=== PATIENT | female | born 1985 | race Caucasian/White ===

== ENCOUNTER → 2021-07-10 15:50 | Observation (INO) ==
[2021-07-10 12:15] LABS: Protein/Creatinine Ratio,Urine 0.24 mg/mg (0.00-0.20)
[2021-07-10 12:24] LABS: Basophils % 0.3 %; Eosinophils # 0.1 K/mcL (0.0-0.6); Eosinophils % 1.5 %; Hematocrit 34.6 % (35.3-44.9); Hemoglobin 11.3 g/dL (11.5-15.4); Immature Granulocytes % 2.1 % (0-4); Lymphocytes % 12.9 %; Mean Corpuscular HGB Conc 32.7 g/dL (31.6-35.5); Mean Corpuscular Hemoglobin 29.9 pg (28.0-33.3); Mean Corpuscular Volume 91.5 fL (83.0-100.0); Mean Platelet Volume 10.6 fL (9.4-12.4); Monocytes # 0.6 K/mcL (0.0-1.3); Monocytes % 7.2 %; Neutrophils # 5.9 K/mcL (1.6-8.9); Platelet Count 241 K/mcL (140-400); Red Blood Count 3.78 M/mcL (3.82-4.97); Red Cell Distribution Width 13.7 % (11.5-14.5); White Blood Count 7.8 K/mcL (4.3-11.1)
[2021-07-10 12:25] LABS: Alanine Aminotransferase 23 Units/L (7-52); Aspartate Amino Transferase 32 Units/L (13-39); BUN/Creatinine Ratio 11 (6-26); Blood Urea Nitrogen 8 mg/dL (6-20); Lactate Dehydrogenase 267 Units/L (140-271); Uric Acid 4.9 mg/dL (2.3-7.6); eGFR For African Americans > 60 (> 60); eGFR For Non-African Americans > 60 (> 60)
[~2021-07-10 15:50] MED LIST: Betamethasone Acet/SodPhos 30 MG/5 ML VIAL IM SCH
== END | disposition home or self-care (01) ==
LOC: 1NENULAB
PROVIDERS: ADMIT Obstetrics & Gynecology; ATTEND Obstetrics & Gynecology

== ENCOUNTER → 2021-07-11 15:50 | Observation (INO) ==
[~2021-07-11 15:50] MED LIST changes: +Acetaminophen/Butalbital/CaffeineTABLET PO ONE; -Betamethasone Acet/SodPhos 30 MG/5 ML VIAL IM SCH; +Betamethasone Acet/SodPhos 30 MG/5 ML VIAL IM STA; +Ondansetron ODT 4 MG TAB.RAPDIS SL ONE
== END | disposition home or self-care (01) ==
LOC: 1NENULAB
PROVIDERS: ADMIT Advanced Practice Midwife; ATTEND Advanced Practice Midwife

== ENCOUNTER → 2021-07-14 15:28 | Observation (INO) ==
[2021-07-14 13:11] LABS: Bacteria,Urine Few per hpf (None-Few); Bilirubin,Urine Negative (Negative); Blood,Urine Moderate (Negative); Clarity,Urine Clear (Clear); Color,Urine Light-Yellow (Yellow); Glucose,Urine (UA) Normal (Normal); Ketones,Urine Negative (Negative); Leukocyte Esterase,Urine Negative (Negative); Mucus,Urine Few per lpf (None-Few); Nitrite,Urine Negative (Negative); Protein,Urine Negative (Neg-Trace); Specific Gravity,Urine 1.009 (1.010-1.025); Squamous Epithelial Cell,Urine Few per hpf (None-Few); Urobilinogen,Urine Normal (Normal)
[2021-07-14 13:33] LABS: Basophils % 0.5 %; Eosinophils # 0.1 K/mcL (0.0-0.6); Eosinophils % 1.3 %; Hemoglobin 10.5 g/dL (11.5-15.4); Immature Granulocytes % 4.4 % (0-4); Lymphocytes # 1.2 K/mcL (0.6-4.6); Lymphocytes % 14.1 %; Mean Corpuscular HGB Conc 32.8 g/dL (31.6-35.5); Mean Corpuscular Hemoglobin 30.3 pg (28.0-33.3); Mean Corpuscular Volume 92.2 fL (83.0-100.0); Mean Platelet Volume 9.7 fL (9.4-12.4); Monocytes # 0.8 K/mcL (0.0-1.3); Monocytes % 8.8 %; Platelet Count 215 K/mcL (140-400); Red Blood Count 3.47 M/mcL (3.82-4.97); Red Cell Distribution Width 14.2 % (11.5-14.5); Segmented Neutrophils % 70.9 %; White Blood Count 8.5 K/mcL (4.3-11.1)
[2021-07-14 13:43] LABS: Protein/Creatinine Ratio,Urine 0.22 mg/mg (0.00-0.20)
[2021-07-14 13:52] LABS: Alanine Aminotransferase 28 Units/L (7-52); Aspartate Amino Transferase 17 Units/L (13-39); BUN/Creatinine Ratio 14 (6-26); Blood Urea Nitrogen 9 mg/dL (6-20); Lactate Dehydrogenase 117 Units/L (140-271); Uric Acid 5.7 mg/dL (2.3-7.6); eGFR For African Americans > 60 (> 60); eGFR For Non-African Americans > 60 (> 60)
[~2021-07-14 15:28] MED LIST changes: -Acetaminophen/Butalbital/CaffeineTABLET PO ONE; -Betamethasone Acet/SodPhos 30 MG/5 ML VIAL IM STA; +Ondansetron 4 MG/2 ML VIAL IVP PRN; -Ondansetron ODT 4 MG TAB.RAPDIS SL ONE; +Ondansetron ODT 4 MG TAB.RAPDIS SL STA; +Ringers Solution, Lactated 1,000 ML IVC ONE; +Ringers Solution, Lactated 1,000 ML IVC SCH
== END | disposition home or self-care (01) ==
LOC: 1NENULAB
PROVIDERS: ADMIT Advanced Practice Midwife; ATTEND Advanced Practice Midwife

== ENCOUNTER → 2021-07-16 16:06 | Observation (INO) ==
[2021-07-16 15:55] LABS: Amorphous Sediment,Urine Few per hpf (None-Few); Bacteria,Urine Few per hpf (None-Few); Bilirubin,Urine Negative (Negative); Blood,Urine Trace (Negative); Clarity,Urine Turbid (Clear); Color,Urine Yellow (Yellow); Glucose,Urine (UA) Normal (Normal); Ketones,Urine Negative (Negative); Leukocyte Esterase,Urine Trace (Negative); Mucus,Urine Few per lpf (None-Few); Nitrite,Urine Negative (Negative); PH,Urine 6.5 pH Units (5.0-8.0); Protein,Urine 30 mg/dL (Neg-Trace); RBC,Urine 0-3 per hpf (0-3); Specific Gravity,Urine 1.023 (1.010-1.025); Squamous Epithelial Cell,Urine Few per hpf (None-Few); Urobilinogen,Urine Normal (Normal)
== END | disposition home or self-care (01) ==
LOC: 1NENULAB
PROVIDERS: ADMIT Advanced Practice Midwife; ATTEND Advanced Practice Midwife

== ENCOUNTER → 2021-07-26 23:54 | Observation (INO) ==
[2021-07-26 23:09] LABS: Basophils % 0.4 %; Eosinophils # 0.1 K/mcL (0.0-0.6); Eosinophils % 1.4 %; Hematocrit 35.9 % (35.3-44.9); Hemoglobin 11.8 g/dL (11.5-15.4); Immature Granulocytes % 1.2 % (0-4); Lymphocytes # 1.3 K/mcL (0.6-4.6); Lymphocytes % 16.8 %; Mean Corpuscular HGB Conc 32.9 g/dL (31.6-35.5); Mean Corpuscular Hemoglobin 29.9 pg (28.0-33.3); Mean Corpuscular Volume 91.1 fL (83.0-100.0); Mean Platelet Volume 9.8 fL (9.4-12.4); Monocytes # 0.6 K/mcL (0.0-1.3); Monocytes % 7.5 %; Neutrophils # 5.6 K/mcL (1.6-8.9); Platelet Count 211 K/mcL (140-400); Red Blood Count 3.94 M/mcL (3.82-4.97); Red Cell Distribution Width 13.7 % (11.5-14.5); Segmented Neutrophils % 72.7 %; White Blood Count 7.7 K/mcL (4.3-11.1)
[2021-07-26 23:13] LABS: Bacteria,Urine Few per hpf (None-Few); Bilirubin,Urine Negative (Negative); Blood,Urine Moderate (Negative); Clarity,Urine Clear (Clear); Color,Urine Colorless (Yellow); Glucose,Urine (UA) Normal (Normal); Ketones,Urine Negative (Negative); Leukocyte Esterase,Urine Negative (Negative); Nitrite,Urine Negative (Negative); PH,Urine 6.5 pH Units (5.0-8.0); Protein,Urine Negative (Neg-Trace); RBC,Urine 0-3 per hpf (0-3); Specific Gravity,Urine < 1.005 (1.010-1.025); Squamous Epithelial Cell,Urine Few per hpf (None-Few); Urobilinogen,Urine Normal (Normal); WBC,Urine 0-3 per hpf (0-3)
[2021-07-26 23:41] LABS: Protein/Creatinine Ratio,Urine 0.2 mg/mg (0.00-0.20)
[2021-07-26 23:42] LABS: Alanine Aminotransferase 22 Units/L (7-52); Aspartate Amino Transferase 15 Units/L (13-39); BUN/Creatinine Ratio 12 (6-26); Blood Urea Nitrogen 10 mg/dL (6-20); Lactate Dehydrogenase 123 Units/L (140-271); Uric Acid 6.3 mg/dL (2.3-7.6); eGFR For African Americans > 60 (> 60); eGFR For Non-African Americans > 60 (> 60)
== END | disposition home or self-care (01) ==
LOC: 1NENULAB
PROVIDERS: ADMIT Student in an Organized Health Care Education/Training Program; ATTEND Student in an Organized Health Care Education/Training Program

== ENCOUNTER 2021-08-13 06:00 | Inpatient (IN) ==
[2021-08-13] MEDS ORDERED: Famotidine 20 MG/2 ML VIAL IVP PRN (06:03)
[2021-08-13] MEDS ORDERED: Penicillin G Potassium 5,000,000 UNIT in 0.9 % Sodium Chloride Mini Bag 100 ML IVPB ONE (06:03)
[2021-08-13] MEDS ORDERED: *HR* Nalbuphine 10 MG/ML AMPUL IV PRN ×2 (06:03→20:21)
[2021-08-13] MEDS ORDERED: Naloxone 0.4 MG/ML INJ IVP PRN (06:03)
[2021-08-13] MEDS ORDERED: Azithromycin 500 MG in 0.9 % Sodium Chloride 250 ML IVPB PRN (06:03)
[2021-08-13] MEDS ORDERED: Lidocaine 1% 20 ML MDV INFILT PRN (06:03)
[2021-08-13] MEDS ORDERED: Metoclopramide 10 MG/2 ML VIAL IVP PRN (06:03)
[2021-08-13] MEDS ORDERED: Oxytocin 20 units/ LR 1000 mL 20 UNIT/1,000 ML BAG IVC SCH ×2 (06:15→20:41)
[2021-08-13] MEDS ORDERED: Ringers Solution, Lactated 1,000 ML IVC SCH (06:15)
[2021-08-13 06:55] LABS: Basophils % 0.5 %; Eosinophils # 0.2 K/mcL (0.0-0.6); Eosinophils % 1.9 %; Hematocrit 39.7 % (35.3-44.9); Hemoglobin 13.1 g/dL (11.5-15.4); Immature Granulocytes % 2.9 % (0-4); Lymphocytes # 1.4 K/mcL (0.6-4.6); Lymphocytes % 16.3 %; Mean Corpuscular Hemoglobin 30.3 pg (28.0-33.3); Mean Corpuscular Volume 91.9 fL (83.0-100.0); Mean Platelet Volume 10.3 fL (9.4-12.4); Monocytes # 0.5 K/mcL (0.0-1.3); Monocytes % 6.2 %; Neutrophils # 6.3 K/mcL (1.6-8.9); Platelet Count 223 K/mcL (140-400); Red Blood Count 4.32 M/mcL (3.82-4.97); Segmented Neutrophils % 72.2 %; White Blood Count 8.8 K/mcL (4.3-11.1)
[2021-08-13 07:04] LABS: Protein/Creatinine Ratio,Urine 0.28 mg/mg (0.00-0.20)
[2021-08-13] MEDS ORDERED: *HR* Labetalol 20 MG/4 ML SYRINGE IVP ONE ×2 (07:12→14:22)
[2021-08-13 07:15] LABS: Alanine Aminotransferase 23 Units/L (7-52); Aspartate Amino Transferase 18 Units/L (13-39); BUN/Creatinine Ratio 10 (6-26); Blood Urea Nitrogen 8 mg/dL (6-20); Lactate Dehydrogenase 139 Units/L (140-271); Uric Acid 5.9 mg/dL (2.3-7.6); eGFR For African Americans > 60 (> 60); eGFR For Non-African Americans > 60 (> 60)
[2021-08-13 07:31] LABS: Influenza A PCR Negative (Negative); Influenza B PCR Negative (Negative); Resp. Syncytial Virus PCR Negative (Negative); SARS-CoV-2 by PCR (In House) Negative (Negative)
[2021-08-13] MEDS ORDERED: EPHEDrine 50 MG/ML VIAL IVP PRN (09:23)
[2021-08-13] MEDS ORDERED: Ropivacaine/PF 0.2% 20 ML VIAL ONE (09:26)
[2021-08-13] MEDS ORDERED: Epidural Premix (fent/bupiv) 110 ML EP SCH (09:30)
[2021-08-13 10:16] LABS: Amphetamine Screen,Urine Negative ng/mL (Cutoff=1000); Barbiturate Screen,Urine Negative ng/mL (Cutoff=200); Benzodiazepines Screen,Urine Negative ng/mL (Cutoff=200); Cannabinoid Screen,Urine Negative ng/mL (Cutoff = 50); Cocaine Screen,Urine Negative ng/mL (Cutoff= 300); Opiate Screen,Urine Negative ng/mL (Cutoff=300); Phencyclidine Screen,Urine Negative ng/mL (Cutoff=25)
[2021-08-13] MEDS: Penicillin G Potassium 2,500,000 UNIT/105 ML MLS IVPB SCH ×2 (11:27→15:14)
[2021-08-13] MEDS ORDERED: miSOPROStoL 100 MCG TABLET RC ONE (11:54)
[2021-08-13] MEDS: Ondansetron 4 MG/2 ML VIAL IVP PRN ×2 (12:30→20:34)
[2021-08-13] MEDS ORDERED: Acetaminophen 325 MG TABLET PO ONE (14:23)
[2021-08-13] MEDS ORDERED: Ondansetron ODT 4 MG TAB.RAPDIS SL PRN (20:41)
[2021-08-13] MEDS ORDERED: Lanolin 7 G OINT...G. TP PRN (20:41)
[2021-08-13] MEDS ORDERED: Benzocaine/Menthol 56 GM AEROSOL SPRAY TP PRN (20:41)
[2021-08-13] MEDS: *HR* OxyCODONE Immed Rel 5 MG TABLET PO PRN (20:58)
[2021-08-13] MEDS: Acetaminophen 325 MG TABLET PO SCH (22:50)
[2021-08-14] MEDS: Ibuprofen 600 MG TABLET PO SCH ×3 (00:59→17:28)
[2021-08-14] MEDS: Acetaminophen 325 MG TABLET PO SCH ×2 (05:09→17:29)
[2021-08-14] MEDS: Prenatal Vit/FA 1 EACH TABLET PO SCH (08:33)
[2021-08-14 12:51] LABS: Basophils % 0.3 %; Eosinophils # 0.1 K/mcL (0.0-0.6); Eosinophils % 1.2 %; Hematocrit 30.1 % (35.3-44.9); Immature Granulocytes % 1.7 % (0-4); Lymphocytes # 1.4 K/mcL (0.6-4.6); Lymphocytes % 13.5 %; Mean Corpuscular HGB Conc 32.2 g/dL (31.6-35.5); Mean Corpuscular Hemoglobin 30.3 pg (28.0-33.3); Mean Corpuscular Volume 94.1 fL (83.0-100.0); Mean Platelet Volume 10.1 fL (9.4-12.4); Monocytes # 0.6 K/mcL (0.0-1.3); Monocytes % 6.1 %; Neutrophils # 7.9 K/mcL (1.6-8.9); Platelet Count 188 K/mcL (140-400); Segmented Neutrophils % 77.2 %; White Blood Count 10.3 K/mcL (4.3-11.1)
[2021-08-14 12:54] LABS: Hemoglobin 9.7 g/dL (11.5-15.4)
[2021-08-14] MEDS: *HR* OxyCODONE Immed Rel 5 MG TABLET PO PRN (19:25)
[2021-08-14 22:30] VITALS: O2SAT 97
[2021-08-15] MEDS: Ibuprofen 600 MG TABLET PO SCH ×3 (00:32→11:48)
[2021-08-15] MEDS: Acetaminophen 325 MG TABLET PO SCH ×3 (00:32→11:49)
[2021-08-15] MEDS: *HR* OxyCODONE Immed Rel 5 MG TABLET PO PRN ×2 (02:54→08:12)
[2021-08-15] MEDS: Prenatal Vit/FA 1 EACH TABLET PO SCH (07:56)
[2021-08-15 08:07] VITALS: BP 129/90; PULSE 86; TEMP 98.7
== END 2021-08-15 11:55 | disposition home or self-care (01) | DRG 560 ==
LOC: 1NENULAB 06:02 → 1NENUOBS 22:33
PROVIDERS: ADMIT Obstetrics & Gynecology; ATTEND Obstetrics & Gynecology